=== PATIENT | female | born 1965 | race Caucasian/White ===

== ENCOUNTER → 2020-11-26 16:57 | Outpatient (CLI) | payer BC, SELFPAY ==
[2020-11-26 18:01] LABS: Cancer Antigen 125 5.7 U/mL (0-35)
[2020-11-29 10:09] LABS: Human Epididymis Prot 4 36.9 pmol/L (0.0-105.2)
== END ==
PROVIDERS: PCP Family Medicine; Referring Provider Specialist; Visit Provider Specialist
DX: N83.8 Other noninflammatory disorders of ovary, fallopian tube and broad ligament (principal); N95.0 Postmenopausal bleeding
CPT/HCPCS: 36415; 86304; 86305

== ENCOUNTER → 2020-12-26 07:59 | Outpatient (CLI) | payer BC, SELFPAY ==
[2020-12-26 08:38] LABS: COVID19 -Nasal RAPID Negative (Negative)
== END ==
PROVIDERS: PCP Family Medicine; Visit Provider Specialist
DX: Z20.822 Contact with and (suspected) exposure to COVID-19 (principal); Z01.812 Encounter for preprocedural laboratory examination
CPT/HCPCS: 87635

== ENCOUNTER 2020-12-27 07:42 | Day surgery (SDC) | payer BC, SELFPAY ==
[2020-12-25 12:39] VITALS: BMI 26.2
[2020-12-27] VITALS (10 sets, daily range): BP systolic 111–148; BP diastolic 55–75; PULSE 49–67; RESP 16–20; TEMP 36.3–36.8; O2SAT 99–100; BMI 26.2
--- NOTE | 2020-12-27 | PATH_ITS ---
[facility] Accession Number: [id number] . 01 Material submitted: . PART A: fallopian tube - BILATERAL FALLOPIAN TUBES; OVARIES PART B: endometrium - ENDOMETRIAL . 02 Diagnosis: A. Bilateral Fallopian Tubes; Ovaries, Bilateral Salpingo-oophorectomy: Fallopian tubes x2 with focal hydrosalpinx and with the suggestion of previous ligation by gross examination; negative for atypia or malignancy. Ovary with attached fallopian tube with a benign serous cystadenoma (1.8 cm). Ovary with detached fallopian tube with multiple benign serous cysts (1-10 mm) and with a small, benign Aleksey tumor (5 mm). . B. Endometrial: Fragment of mildly inflamed endocervical polyp; negative for glandular dysplasia or malignancy. Avulsed squames and portions of squamous mucosa; negative for squamous dysplasia or malignancy. Small fragments of endometrial tissue and strips of endometrial glandular epthelium; negative for glandular hyperplasia, cytologic atypia, or malignancy. [facility] 01/02/2021 1513 Local . 02 Comment: As part of routine supplier quality manager, this case was also reviewed by Dr. Talbot, who agrees with the interpretation. . 02 Electronically signed: . Elli Atkinson MD, Pathologist NPI- [id number] . 01 Gross description: . A. The specimen is received in formalin, labeled bilateral fallopian tubes and ovaries, and consists of bilateral fallopian tubes and ovaries. One ovary measures 3.0 x 2.5 x 1.0 cm, and the other ovary measures 2.5 x 2.5 x 1.0 cm. The external surfaces are segura and cerebriform with focal areas of disruption. Sectioning reveals multiple segura to segura-pink smooth-walled cysts ranging from 0.1 cm to 1.8 cm. No papillary excrescences are identified. One ovary has an attached fallopian tube measuring 6.5 cm in length by 1.0 cm in diameter and appears to have been previously ligated. The other detached fragment of fallopian tube measures 4.0 cm in length by 1.0 cm in diameter. The serosa is segura-pink to pink-purple with focal fibrinous adhesions. Sectioning reveals pink-segura mucosa and a lumen measuring up to 0.9 cm in diameter, which contains clotted blood. Merchandise Flow Manager sections are submitted. . A1: Merchandise Flow Manager ovary with attached fallopian tube. A2: Merchandise Flow Manager attached fallopian tube, bisected fimbriated, and central cross-sections. A3-A4: Merchandise Flow Manager sections of other ovary. A5-A6: Merchandise Flow Manager sections of fragmented fallopian tube, to include possible fimbria. . B. The specimen is received in formalin, labeled endometrial curettings, and consists of multiple segura-pink fragments of soft tissue admixed with mucus and clotted blood measuring 2.5 x 2.0 x 0.3 cm in aggregate. The specimen is filtered and entirely submitted in cassette B1. ([id number]) /[facility] 12/28/2020 1646 Local . 02 Microscopic: . An immunohistochemistry study is performed to evaluate the cells of interest. The control stains show appropriate reactivity. . RESULTS: Block A4: GATA3: Faintly positive in cells of interest. Inhibin: Rare stromal cells positive; negative in cells of interest. P63: Positive in cells of interest. WT1: Negative. . The cells of interest are immunopositive for p63 and show faint staining with GATA3; they are immunonegative for inhibin and for WT-1. 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 . * This test was developed and its performance characteristics determined by [employer]. It has not been cleared or approved by the U.S. Food and Drug Administration. The FDA has determined that such clearance or approval is not necessary. This test is used for clinical purposes. It should not be regarded as investigational or for research . 02 Pathologist provided ICD-10: N95.0, R10.31 . 02 CPT . 118687, 306556, V18676, A83386 Performed at: 01 [facility] [address] [place] [address] [id number] MD Sergo Humhpreys MD Phone: [phone] Performed at: 02 [facility] [address] [place] [address] [id number] MD Jaylin Talbot MD Phone: [phone]
[2020-12-27] MEDS: ACETAMINOPHEN 325 MG TABLET 975 MG PO (08:02)
[2020-12-27] MEDS: LACTATED RINGERS 1,000 ML 42 ML IV (08:02)
--- NOTE | 2020-12-27 08:18 | PM.PREOP ---
Pre-operative Note COVID-19 COVID-19 status: Negative Result date/Date tested (Pos, Neg/Pending): 12/26/20 Interval Note History & Physical reviewed/Exam performed by Physician: Yes Changes to H&P: No
--- NOTE | 2020-12-27 08:24 | SUR.OPER ---
Lithotomy on padded OR bed, head on pillow, arms secured on padded arm boards at <90 degrees abduction. Legs secured in padded yellow fins stirrups.
[2020-12-27] MEDS: BUPIVACAINE 0.5% (PF) VIAL 30 ML INJ (09:12)
[2020-12-27] MEDS: EPINEPHrine 1 MG/ML 0.15 MG INJ (09:14)
[2020-12-27] MEDS: ONDANSETRON 4 MG/2 ML INJ IV (10:07)
--- NOTE | 2020-12-27 10:11 | PM.OP.1 ---
Operative Date/Time/Diagnoses Date of procedure: 12/27/20 Time of procedure: 10:12 Pre-op diagnosis: Left ovarian cysts, right lower quadrant pain, abnormal uterine bleeding Post-op diagnosis: same Procedure & Clinicians Procedure: Laparoscopic BSO. Endometrial curettage. Same procedure as scheduled: Yes Indications: Patient with abnormal uterine bleeding, right lower quadrant pain found to have multiple cysts in the left adnexa. Surgeon: Jewell Finn Diabetic Educator: Chau Javier Click Yes if Unassisted: No Anesthesia Type: General Operative Notes Findings: Dense adhesion of the uterus to the anterior abdominal wall. Status post bilateral tubal ligation with bilateral hydrosalpinx, paratubal cysts, bilateral normal appearance to ovaries. Left mid abdomen adhesion of the omentum to the anterior abdominal wall. Normal-appearing liver edge and bowel surface. No evidence of endometriosis. Minimal tissue on endometrial curettage. Closure Type: primary Specimen(s): other (Bilateral tubes and ovaries, uterine curettage) Estimated Blood Loss (mL): 5 Blood products transfused: none Procedure in detail: Patient was brought to the operating room where she underwent general anesthesia. [facility] and prepped and draped in usual sterile fashion. No antibiotics were indicated. Pulsatile stockings were in place and functional. Warming was with Paulette Hugger. A single-tooth tenaculum was placed on the anterior lip of the cervix and the cervix dilated to #6 Hegar dilator. The Zumi uterine manipulator was placed and balloon inflated with 3 mL of air. The area of the incisions were injected with 1/4 percent Marcaine with epinephrine. An incision was made in the umbilicus with a scalpel and the Verres needle placed in the abdomen. Confirmation of correct placement of the needle was performed by withdrawing on the syringe and then allowing fluid to fall freely through the needle. The abdomen was insufflated to 3 L of CO2. A 5 mm trocar was placed under direct visualization. 2 other 5 mm trochars were placed in the right and left lower quadrant under direct visualization after incising the skin. There did not appear to be any damage with placement of the trocars. The right infundibulopelvic ligament was grasped, cauterized and cut. Sequential bites were taken across the broad ligament then across the utero-ovarian ligament and the fallopian tube at the juncture to the uterus freeing the entire tube and ovary with the PK generator. Same procedure was performed on the left adnexa. The umbilical 5 mm trocar was replaced with a 12 mm trocar. An Endo-Catch bag was placed through the trocar and the tubes and ovaries were placed in the bag and brought up to the incision. They were removed intact without spillage. Adequate hemostasis was noted. The CO2 was allowed to escape from the abdomen. The trochars were removed. The fascial layer the umbilical incision was closed with 0 Vicryl suture. Skin was closed with 4-0 monocryl. Next the speculum was placed back in the vagina in single view with tenaculum placed on the anterior lip of the cervix. Endometrial curettage was performed and tissue sent to pathology. The patient went to recovery room in good condition. Counts of instruments and sponges were correct. Dr. Javier was present throughout the case to help grasping and retracting the adnexa for exposure, holding the camera and performing the left salpingo oophorectomy. Complications: none Post-operative Condition: stable Disposition: same day surgery Plan for aftercare: Home when awake and stable. Follow-up in 1 week.
[2020-12-27] MEDS: METOCLOPRAMIDE 10 MG/2 ML INJ IV (10:15)
[2020-12-27] MEDS: OXYCODONE IR 5 MG TABLET PO ×2 (10:17→10:47)
[2020-12-27] MEDS: hydrOXYzine pamoate 25 MG CAPSULE PO (10:47)
== END 2020-12-27 11:43 | disposition home or self-care (01) ==
PROVIDERS: PCP Family Medicine; Referring Provider Specialist; Visit Provider Specialist
PROC: 0UT24ZZ Resection of Bilateral Ovaries, Percutaneous Endoscopic Approach (ICD-10-PCS; CPT 58661; principal; 2020-12-27 08:45)
PROC: (CPT 58120; 2020-12-27 08:45)
DX: N83.8 Other noninflammatory disorders of ovary, fallopian tube and broad ligament (principal); N70.11 Chronic salpingitis; N83.209 Unspecified ovarian cyst, unspecified side; D27.9 Benign neoplasm of unspecified ovary; N84.1 Polyp of cervix uteri
CPT/HCPCS: 58661; 58120; J0171; J0330; J1100; J2250; J2405; J2704; J2765; J3010